=== PATIENT | male | born 2000 | race Caucasian/White ===

== ENCOUNTER 2020-07-30 12:44 | Emergency (ER) | payer BC ==
[~2020-07-30] VITALS: Ht 182.9 cm; Wt 72.7 kg
[~2020-07-30 12:44] MED LIST: ADDERALL30 MG PO; LORTAB ELIX0.5 MG/ML PO; VYVANSE20 MG PO
[2020-07-30 12:56] VITALS: TEMP 98
[2020-07-30] MEDS ORDERED: NORCO 325 MG-51 TAB PO (14:44)
[2020-07-30 15:00] VITALS: BP 138/102; PULSE 69
== END 2020-07-30 15:05 | disposition home or self-care (01) ==
LOC: COL.ER 12:44
DX: S42.001A Fracture of unspecified part of right clavicle, initial encounter for closed fracture (principal); Z88.8 Allergy status to other drugs, medicaments and biological substances; W19.XXXA Unspecified fall, initial encounter

== ENCOUNTER 2020-08-08 21:37 | Emergency (ER) | payer BC ==
[~2020-08-08] VITALS: Ht 182.9 cm; Wt 74.5 kg
[~2020-08-08 21:37] MED LIST changes: +NORCO 325 MG-51 TAB PO
[2020-08-08 21:47] VITALS: TEMP 97.6
[2020-08-08 23:40] VITALS: BP 104/84; PULSE 71
== END 2020-08-08 23:40 | disposition home or self-care (01) ==
LOC: COL.ER 21:37
DX: S02.2XXA Fracture of nasal bones, initial encounter for closed fracture (principal); S01.112A Laceration without foreign body of left eyelid and periocular area, initial encounter; S01.511A Laceration without foreign body of lip, initial encounter; Z88.8 Allergy status to other drugs, medicaments and biological substances

== ENCOUNTER 2020-09-10 13:40 | Emergency (ER) | payer BC ==
[~2020-09-10] VITALS: Ht 182.9 cm; Wt 75.0 kg
[2020-09-10 13:59] VITALS: BP 131/83; PULSE 73; TEMP 97.8
== END 2020-09-10 17:42 | disposition home or self-care (01) ==
LOC: COL.ER 13:40
DX: M25.511 Pain in right shoulder (principal); F90.9 Attention-deficit hyperactivity disorder, unspecified type; Z87.81 Personal history of (healed) traumatic fracture; Z23 Encounter for immunization; Z88.8 Allergy status to other drugs, medicaments and biological substances

== ENCOUNTER 2021-05-15 22:08 | Emergency (ER) | payer BC ==
[~2021-05-15] VITALS: Ht 182.9 cm; Wt 75.0 kg
[2021-05-15 22:37] VITALS: TEMP 98.1
[2021-05-15 22:56] VITALS: BP 115/76; PULSE 94
== END 2021-05-15 22:56 | disposition home or self-care (01) ==
LOC: COL.ER 22:08
DX: S61.431A Puncture wound without foreign body of right hand, initial encounter (principal); W26.0XXA Contact with knife, initial encounter